=== PATIENT | female | born 1955 | race Caucasian/White ===

== ENCOUNTER 2016-09-25 17:22 | Emergency (ER) | payer BC ==
[~2016-09-25] VITALS: Ht 170.2 cm; Wt 54.9 kg
[~2016-09-25 17:22] MED LIST: ADVAIR 250/501 DISK IH; ALPRAZOLAM0.5 MG PO; ALPRAZOLAM1 MG PO; AMITRIPTYLINE H50 MG PO; AMLODIPINE BESYL5 MG PO; ANORO ELLIPTA1 EACH IH; ASPERCREME 1035.4 GM TP; ASPIRIN325 MG PO; BREO ELLIPTA 21 EACH IH; CALCIUM CARB1 TABLET PO; CATAPRES0.2 MG PO; CEFTIN500 MG PO; CLONIDINE HCL0.2 MG PO; CLOPIDOGREL75 MG PO; CYCLOBENZAPRINE10 MG PO; Chronulac,Cephulac,E PO; DAILY VALUE1 EACH PO; DICLOFENAC SOD100 MG PO; DICLOFENAC SODI75 MG PO; DIOVAN HCT 31 TABLET PO; DUONEB 2.5-0.5 M3 ML IH; FLEXERIL10 MG PO; FLONASE16 G1 BOTH NARES; IRON325 M1 PO; LACTULOSE10 GM/151 PO; LISINOPRIL10 MG PO; LITE COAT ASPI325 M1 PO; LOPRESSOR25 MG PO; LYRICA225 MG PO; MIRAPEX0.5 MG PO; MONTELUKAST SOD10 MG PO; MYCELEX10 MG PO; NEURONTIN800 MG PO; NICOTINE PATCH1 EAC1 TD; NICOTINE PATCH1 EAC2 TD; NITROSTAT0.4 MG SL; NOHOMEMEDS; NYSTATIN100000 UN1 PO; OXYCODONE HCL15 MG PO; OXYCONTIN10 MG PO; PERCOCET 10/1 TABLET PO; PRAVASTATIN SOD80 MG PO; PREDNISONE10 MG PO; PREDNISONE20 MG PO; PROAIR HFA8.5 GM; PROAIR HFA8.5 GM IH; PROTONIX40 MG PO; PROVENTIL,2.5 MG/3 M IH; SENNA8.6 M1 PO; SENNA8.6 MG PO; SIMVASTATIN40 MG PO; SINGULAIR10 MG PO; TIZANIDINE HCL4 MG PO; TRAZODONE HCL100 MG PO; TYLENOL EXTRA500 MG PO; ULTRAM50 MG PO; VOLTAREN75 MG PO; XANAX0.5 MG PO; XANAX1 MG PO; ZANTAC150 MG PO; ZOCOR20 MG PO; ZOFRAN4 MG PO
[2016-09-25 19:29] LABS: BASOPHIL COUNT 0.1 K/uL (0-0.1); EOSINOPHIL (%) 2.7 % (0-5); EOSINOPHIL COUNT 0.3 K/uL (0-0.3); HEMATOCRIT 45.8 % (36.0-46.0); IMMATURE GRANULOCYTE (%) 0.3 % (0.0-0.7); INSTRUMENT ABS NEUTROPHIL CT 5.9 K/uL; LYMPHOCYTE COUNT 3.3 K/uL (1.0-2.8); MCH 26.4 PG (29.0-34.0); MCHC 32.1 G/DL (30.0-36.0); MCV 82.2 FL (83-99); MONOCYTE COUNT 0.7 K/uL (0-0.8); NEUTROPHIL (%) 57.3 % (45-76); NEUTROPHIL COUNT 5.9 K/uL (1.8-6.4); PLATELET COUNT 334 K/uL (156-360); RBC DIS.WIDTH-CV 14.4 % (11.8-14.6); RED BLOOD COUNT 5.57 M/uL (3.80-5.20); WHITE BLOOD COUNT 10.4 K/uL (4.1-10.2)
[2016-09-25 19:44] LABS: CHLORIDE 109 mEq/L (99-109); POTASSIUM 4.3 mEq/L (3.7-5.4); SODIUM 145 mEq/L (136-147)
[2016-09-25 19:45] LABS: GLUCOSE 94 mg/dL (70-99)
[2016-09-25 19:47] LABS: ANION GAP 8 MEQ/L (2-14)
[2016-09-25] MEDS ORDERED: LEVAQUIN750 MG PO (19:48)
[2016-09-25 19:49] LABS: GFR ESTIMATE (CALCULATED) > 59 mL/min/
[2016-09-25 19:50] LABS: UREA NITROGEN (BUN) 10 mg/dL (9-23)
[2016-09-25 20:16] VITALS: BP 171/95
== END 2016-09-25 20:22 | disposition home or self-care (01) ==
LOC: EME 17:22
PROVIDERS: Emergency Medicine
DX: J44.0 Chronic obstructive pulmonary disease with (acute) lower respiratory infection (principal); J18.9 Pneumonia, unspecified organism; F17.200 Nicotine dependence, unspecified, uncomplicated; Z71.6 Tobacco abuse counseling; I10 Essential (primary) hypertension; I25.2 Old myocardial infarction; K21.9 Gastro-esophageal reflux disease without esophagitis; F41.9 Anxiety disorder, unspecified; M79.7 Fibromyalgia; Z86.73 Personal history of transient ischemic attack (TIA), and cerebral infarction without residual deficits; Z91.040 Latex allergy status; Z88.6 Allergy status to analgesic agent; Z88.2 Allergy status to sulfonamides
CPT/HCPCS: 80048; 85025; 87040; 93005; 99281; 99284

== ENCOUNTER → 2017-07-19 | Outpatient (CLI) | payer OTHER ==
[~2017-07-19] MED LIST changes: +LEVAQUIN750 MG PO
== END | disposition home or self-care (01) ==
LOC: RAD 15:55
DX: R05 Cough (principal); R06.02 Shortness of breath
CPT/HCPCS: 71046

== ENCOUNTER 2017-09-27 16:13 | Inpatient (IN) | payer OTHER ==
[~2017-09-27] VITALS: Ht 172.7 cm; Wt 58.8 kg
[~2017-09-27 16:13] MED LIST changes: -LITE COAT ASPI325 M1 PO; +LO-DOSE ASPIRIN81 M2 PO
[2017-09-27 17:21] LABS: HEMATOCRIT 49.2 % (36.0-46.0); MCH 27.5 PG (29.0-34.0); MCHC 32.5 G/DL (30.0-36.0); MCV 84.5 FL (83-99); PLATELET COUNT 289 K/uL (156-360); RBC DIS.WIDTH-CV 13.7 % (11.8-14.6); RED BLOOD COUNT 5.82 M/uL (3.80-5.20); WHITE BLOOD COUNT 22.5 K/uL (4.1-10.2)
[2017-09-27 17:37] LABS: ALBUMIN 4.1 g/dL (3.2-4.8); CHLORIDE 105 mEq/L (99-109); POTASSIUM 3.8 mEq/L (3.7-5.4); SODIUM 141 mEq/L (136-147)
[2017-09-27 17:39] LABS: GLUCOSE 105 mg/dL (70-99)
[2017-09-27 17:41] LABS: TOTAL BILIRUBIN 0.7 mg/dL (0.0-1.0)
[2017-09-27 17:43] LABS: ALKALINE PHOSPHATASE 79 IU/L (3-129); CREATININE 0.7 mg/dL (0.6-1.3); GFR ESTIMATE (CALCULATED) > 59 mL/min/
[2017-09-27 17:44] LABS: UREA NITROGEN (BUN) 17 mg/dL (9-23)
[2017-09-27 17:45] LABS: AST (GOT) 16 IU/L (2-34)
[2017-09-27 17:46] LABS: ALT (GPT) 18 IU/L (3-49); LIPASE 5 U/L (1.0-51.0)
[2017-09-27 19:26] LABS: APPEARANCE SL.HAZY ((CLEAR)); BILIRUBIN NEGATIVE; BLOOD MODERATE; COLOR YELLOW ((YELLOW)); GLUCOSE (STRIP) NEGATIVE; KETONES NEGATIVE; LEUKOCYTES LARGE; NITRITE POSITIVE; PROTEIN (STRIP) 30; SPECIFIC GRAVITY 1.011 (1.000-1.030); UROBILINOGEN 0.2 MG/DL (0.2-1.0)
[2017-09-27 19:32] LABS: BACTERIA RARE /HPF; EPITHELIAL CELLS RARE /HPF; MUCUS TRACE /LPF; UCUL ADDED? YES; WHITE BLOOD CELLS TNTC /HPF (0-5)
[2017-09-27] MEDS ORDERED: KEFLEX500 MG PO (19:50)
[2017-09-27] MEDS ORDERED: PRAMIPEXOLE DI0.5 MG PO (22:43)
[2017-09-27] MEDS ORDERED: PROCTOCREAM-HC30 GM PR (22:43)
[2017-09-27] MEDS ORDERED: METOPROLOL SUCC25 MG PO (22:44)
[2017-09-27] MEDS ORDERED: PRAVASTATIN SOD80 MG PO (22:44)
[2017-09-27] MEDS ORDERED: MORPHINE SULFAT15 M1 PO (22:45)
[2017-09-27] MEDS ORDERED: CYCLOBENZAPRINE10 MG PO (22:45)
[2017-09-27] MEDS ORDERED: OXYCODONE HCL10 MG PO (22:46)
[2017-09-27] MEDS ORDERED: VENTOLIN HFA18 GM IH (22:47)
[2017-09-27] MEDS ORDERED: MONTELUKAST SOD10 MG PO (22:48)
[2017-09-27] MEDS ORDERED: PANTOPRAZOLE SO40 MG PO (22:48)
[2017-09-27] MEDS ORDERED: ALENDRONATE SOD70 MG PO (22:49)
[2017-09-27] MEDS ORDERED: VITAMIN D-32000 UNI2 PO (22:50)
[2017-09-27] MEDS ORDERED: AMITRIPTYLINE H25 MG PO (22:50)
[2017-09-28 00:42] VITALS: BP 95/52
[2017-09-28 04:59] VITALS: BP 92/55
[2017-09-28 06:55] VITALS: BP 161/68
[2017-09-28 11:17] VITALS: BP 102/60
[2017-09-28 15:08] VITALS: BP 111/58
[2017-09-28 20:30] VITALS: BP 134/70
[2017-09-29 00:25] VITALS: BP 88/46
[2017-09-29 03:55] VITALS: BP 93/54
[2017-09-29 06:50] VITALS: BP 115/55
[2017-09-29 08:46] VITALS: BP 130/62
[2017-09-29 11:00] VITALS: BP 100/53
[2017-09-29 16:49] VITALS: BP 131/60
[2017-09-30 00:33] VITALS: BP 123/57
[2017-09-30 07:00] VITALS: BP 136/62
[2017-09-30 08:52] LABS: HEMATOCRIT 38.1 % (36.0-46.0); MCH 26.7 PG (29.0-34.0); MCHC 31.5 G/DL (30.0-36.0); MCV 84.9 FL (83-99); PLATELET COUNT 226 K/uL (156-360); RBC DIS.WIDTH-CV 13.4 % (11.8-14.6); RBC DIS.WIDTH-SD 41.7 % (39-53); WHITE BLOOD COUNT 7.3 K/uL (4.1-10.2)
[2017-09-30 09:20] LABS: RED BLOOD COUNT 4.49 M/uL (3.80-5.20)
[2017-09-30 09:29] LABS: CHLORIDE 107 MEQ/L (99-109); CREATININE 0.5 MG/DL (0.6-1.3); GFR ESTIMATE (CALCULATED) > 59 mL/min/; GLUCOSE 85 mg/dL (70-99); POTASSIUM 3.7 MEQ/L (3.7-5.4); SODIUM 141 MEQ/L (136-147); UREA NITROGEN (BUN) 7 mg/dL (9-23)
[2017-09-30 10:53] LABS: TROP-I INTERPRETATION NEGATIVE; TROPONIN-I < 0.01 ng/mL (0.0-0.30)
[2017-09-30 15:00] VITALS: BP 160/74
[2017-10-01 00:40] VITALS: BP 118/66
[2017-10-01 06:57] VITALS: BP 174/86
[2017-10-01 15:23] VITALS: BP 161/77
[2017-10-01 18:12] LABS: COMMENTS - BLOOD GASES A+C+; DEVICE NRBM; FI02 100 %; O2 FLOW 15 L/MIN; SITE LR; TOTAL RESP RATE 24 resp/min; pH 7.25 (7.35-7.45)
[2017-10-01 18:13] LABS: BASE EXCESS -6.7 mEq/L (-3 to +3); BICARBONATE 20.6 mEq/L (22-26); METHEMOGLOBIN 0.7 % (0-1.5); O2 SATURATION (CALCULATED) 98.1 % (95-99); PCO2 47 mm Hg (35-45); PO2 383 mm Hg (80-100)
[2017-10-01 18:37] LABS: HEMATOCRIT 39.9 % (36.0-46.0); HEMOGLOBIN 12.9 G/DL (11.9-15.5); MCH 27.7 PG (29.0-34.0); MCHC 32.3 G/DL (30.0-36.0); MCV 85.8 FL (83-99); RBC DIS.WIDTH-CV 13.8 % (11.8-14.6); RBC DIS.WIDTH-SD 42.6 % (39-53); RED BLOOD COUNT 4.65 M/uL (3.80-5.20); WHITE BLOOD COUNT 14.9 K/uL (4.1-10.2)
[2017-10-01 18:45] LABS: PLATELET COUNT 344 K/uL (156-360)
[2017-10-01 19:00] LABS: TROP-I INTERPRETATION INDETERMINATE; TROPONIN-I 0.38 ng/mL (0.0-0.30)
[2017-10-01 19:24] VITALS: BP 121/86
[2017-10-01 20:17] LABS: ALBUMIN 3.4 g/dL (3.2-4.8)
[2017-10-01 20:18] LABS: CHLORIDE 110 mEq/L (99-109); POTASSIUM 4.1 mEq/L (3.7-5.4); SODIUM 145 mEq/L (136-147)
[2017-10-01 20:20] LABS: TOTAL PROTEIN 6.2 g/dL (6.4-8.3)
[2017-10-01 20:23] LABS: GLUCOSE 137 mg/dL (70-99); TOTAL BILIRUBIN 0.3 mg/dL (0.0-1.0)
[2017-10-01 20:24] LABS: CREATININE 0.7 mg/dL (0.6-1.3); GFR ESTIMATE (CALCULATED) > 59 mL/min/
[2017-10-01 20:25] LABS: UREA NITROGEN (BUN) 9 mg/dL (9-23)
[2017-10-01 20:27] LABS: ALKALINE PHOSPHATASE 194 IU/L (3-129); ALT (GPT) 48 IU/L (3-49); AST (GOT) 35 IU/L (2-34)
[2017-10-02 01:45] VITALS: BP 89/61
[2017-10-02 03:43] LABS: INTER. NORMALIZED RATIO 1.1
[2017-10-02 03:46] LABS: PTT 30.9 SEC (25-37)
[2017-10-02 04:00] LABS: TROP-I INTERPRETATION POSITIVE; TROPONIN-I 1.07 ng/mL (0.0-0.30)
[2017-10-02 08:00] VITALS: BP 119/81
[2017-10-02 10:00] LABS: HEMATOCRIT 38.7 % (36.0-46.0); HEMOGLOBIN 12.3 G/DL (11.9-15.5); MCHC 31.8 G/DL (30.0-36.0); MCV 84.9 FL (83-99); PLATELET COUNT 258 K/uL (156-360); RBC DIS.WIDTH-CV 13.3 % (11.8-14.6); RBC DIS.WIDTH-SD 41.3 % (39-53); RED BLOOD COUNT 4.56 M/uL (3.80-5.20); WHITE BLOOD COUNT 7.7 K/uL (4.1-10.2)
[2017-10-02 10:20] LABS: TROPONIN-I 0.66 ng/mL (0.0-0.30)
[2017-10-02 10:21] LABS: TROP-I INTERPRETATION POSITIVE
[2017-10-02 10:24] LABS: CHLORIDE 107 MEQ/L (99-109); MAGNESIUM 2.1 mg/dl (1.3-2.7); POTASSIUM 4.2 MEQ/L (3.7-5.4); SODIUM 144 MEQ/L (136-147)
[2017-10-02 10:31] LABS: CREATININE 0.6 MG/DL (0.6-1.3); GFR ESTIMATE (CALCULATED) > 59 mL/min/; GLUCOSE 132 mg/dL (70-99); UREA NITROGEN (BUN) 9 mg/dL (9-23)
[2017-10-02 11:00] VITALS: BP 114/71
[2017-10-02 14:54] VITALS: BP 127/66
[2017-10-02 15:59] LABS: TROP-I INTERPRETATION INDETERMINATE; TROPONIN-I 0.48 ng/mL (0.0-0.30)
[2017-10-02 20:15] VITALS: BP 133/78
[2017-10-02 23:44] VITALS: BP 108/67
[2017-10-03] VITALS (8 sets, daily range): BP systolic 97–166; BP diastolic 56–93
[2017-10-03 06:53] LABS: HEMATOCRIT 35.6 % (36.0-46.0); HEMOGLOBIN 11.2 G/DL (11.9-15.5); MCH 26.8 PG (29.0-34.0); MCHC 31.5 G/DL (30.0-36.0); MCV 85.2 FL (83-99); PLATELET COUNT 333 K/uL (156-360); RBC DIS.WIDTH-CV 13.5 % (11.8-14.6); RBC DIS.WIDTH-SD 41.9 % (39-53); RED BLOOD COUNT 4.18 M/uL (3.80-5.20); WHITE BLOOD COUNT 15.6 K/uL (4.1-10.2)
[2017-10-03 07:38] LABS: CHLORIDE 112 MEQ/L (99-109); CREATININE 0.6 MG/DL (0.6-1.3); GFR ESTIMATE (CALCULATED) > 59 mL/min/; POTASSIUM 4.1 MEQ/L (3.7-5.4); SODIUM 147 MEQ/L (136-147); UREA NITROGEN (BUN) 14 mg/dL (9-23)
[2017-10-03 07:45] LABS: GLUCOSE 90 mg/dL (70-99)
[2017-10-03 10:34] LABS: TROP-I INTERPRETATION INDETERMINATE; TROPONIN-I 0.39 ng/mL (0.0-0.30)
[2017-10-03 14:27] LABS: COMMENTS - BLOOD GASES A+C+; DEVICE NC; O2 FLOW 5 L/MIN; SITE LR; TOTAL RESP RATE 29 resp/min; pH 7.44 (7.35-7.45)
[2017-10-03 14:28] LABS: BASE EXCESS 2.8 mEq/L (-3 to +3); BICARBONATE 27.2 mEq/L (22-26); CARBOXY HGB 1.7 % (0-5); METHEMOGLOBIN 1.2 % (0-1.5); PCO2 40 mm Hg (35-45); PO2 58 mm Hg (80-100)
[2017-10-03 16:34] LABS: DEVICE NRB; O2 FLOW 15 L/MIN
[2017-10-03 16:35] LABS: BASE EXCESS 0.8 mEq/L (-3 to +3); BICARBONATE 26.6 mEq/L (22-26); CARBOXY HGB 1.2 % (0-5); COMMENTS - BLOOD GASES C+; METHEMOGLOBIN 0.9 % (0-1.5); O2 SATURATION (CALCULATED) 99.3 % (95-99); PCO2 46 mm Hg (35-45); PO2 172 mm Hg (80-100); pH 7.37 (7.35-7.45)
[2017-10-03 16:53] LABS: BASOPHIL (%) 0.4 % (0-1); BASOPHIL COUNT 0.1 K/uL (0-0.1); EOSINOPHIL (%) 0.2 % (0-5); EOSINOPHIL COUNT 0.1 K/uL (0-0.3); HEMATOCRIT 40.9 % (36.0-46.0); HEMOGLOBIN 13.1 G/DL (11.9-15.5); IMMATURE GRANULOCYTE (%) 0.6 % (0.0-0.7); LYMPHOCYTE (%) 9.7 % (15-42); LYMPHOCYTE COUNT 2.5 K/uL (1.0-2.8); MCH 27.3 PG (29.0-34.0); MCV 85.2 FL (83-99); MONOCYTE (%) 6.3 % (3-12); MONOCYTE COUNT 1.6 K/uL (0-0.8); NEUTROPHIL (%) 82.8 % (45-76); NEUTROPHIL COUNT 20.9 K/uL (1.8-6.4); RBC DIS.WIDTH-CV 13.6 % (11.8-14.6); RBC DIS.WIDTH-SD 42.5 % (39-53); WHITE BLOOD COUNT 25.3 K/uL (4.1-10.2)
[2017-10-03 16:58] LABS: PLATELET COUNT 451 K/uL (156-360)
[2017-10-03 17:16] LABS: TROP-I INTERPRETATION INDETERMINATE; TROPONIN-I 0.42 ng/mL (0.0-0.30)
[2017-10-03 23:29] LABS: TROP-I INTERPRETATION INDETERMINATE
[2017-10-04 02:53] VITALS: BP 93/56
[2017-10-04 06:45] LABS: HEMATOCRIT 37.9 % (36.0-46.0); HEMOGLOBIN 11.7 G/DL (11.9-15.5); MCH 26.3 PG (29.0-34.0); MCHC 30.9 G/DL (30.0-36.0); MCV 85.2 FL (83-99); PLATELET COUNT 345 K/uL (156-360); RBC DIS.WIDTH-CV 13.4 % (11.8-14.6); RED BLOOD COUNT 4.45 M/uL (3.80-5.20); WHITE BLOOD COUNT 13.2 K/uL (4.1-10.2)
[2017-10-04 07:12] VITALS: BP 121/64
[2017-10-04 07:27] LABS: CHLORIDE 105 MEQ/L (99-109); CREATININE 0.5 MG/DL (0.6-1.3); GFR ESTIMATE (CALCULATED) > 59 mL/min/; MAGNESIUM 2.1 mg/dl (1.3-2.7); POTASSIUM 4.3 MEQ/L (3.7-5.4); SODIUM 145 MEQ/L (136-147); UREA NITROGEN (BUN) 11 mg/dL (9-23)
[2017-10-04 07:30] LABS: GLUCOSE 154 mg/dL (70-99)
[2017-10-04 16:00] VITALS: BP 117/77
[2017-10-04 19:07] VITALS: BP 117/65
[2017-10-04 23:55] VITALS: BP 9/58; BP 99/58
[2017-10-05 03:30] VITALS: BP 116/67
[2017-10-05 05:45] LABS: BASOPHIL (%) 0.1 % (0-1); EOSINOPHIL (%) 0 % (0-5); HEMATOCRIT 36.7 % (36.0-46.0); HEMOGLOBIN 11.1 G/DL (11.9-15.5); LYMPHOCYTE (%) 5.8 % (15-42); LYMPHOCYTE COUNT 0.7 K/uL (1.0-2.8); MCH 26.1 PG (29.0-34.0); MCHC 30.2 G/DL (30.0-36.0); MCV 86.4 FL (83-99); MONOCYTE (%) 2.7 % (3-12); MONOCYTE COUNT 0.3 K/uL (0-0.8); NEUTROPHIL (%) 90.4 % (45-76); NEUTROPHIL COUNT 11.4 K/uL (1.8-6.4); PLATELET COUNT 377 K/uL (156-360); RBC DIS.WIDTH-CV 13.6 % (11.8-14.6); RBC DIS.WIDTH-SD 42.5 % (39-53); RED BLOOD COUNT 4.25 M/uL (3.80-5.20); WHITE BLOOD COUNT 12.6 K/uL (4.1-10.2)
[2017-10-05 06:02] LABS: CHLORIDE 107 MEQ/L (99-109); CREATININE 0.7 MG/DL (0.6-1.3); GFR ESTIMATE (CALCULATED) > 59 mL/min/; GLUCOSE 139 mg/dL (70-99); MAGNESIUM 2.1 mg/dl (1.3-2.7); POTASSIUM 3.7 MEQ/L (3.7-5.4); SODIUM 146 MEQ/L (136-147); UREA NITROGEN (BUN) 15 mg/dL (9-23)
[2017-10-05 07:10] VITALS: BP 129/74
[2017-10-05 08:45] LABS: TROP-I INTERPRETATION INDETERMINATE; TROPONIN-I 0.33 ng/mL (0.0-0.30)
[2017-10-05 11:52] VITALS: BP 135/68
[2017-10-05 15:20] VITALS: BP 128/74
[2017-10-05 19:47] VITALS: BP 128/74
[2017-10-06 00:04] VITALS: BP 123/66
[2017-10-06 05:16] VITALS: BP 128/81
[2017-10-06 07:07] VITALS: BP 141/84
[2017-10-06 09:19] LABS: CHLORIDE 103 MEQ/L (99-109); CREATININE 0.6 MG/DL (0.6-1.3); GFR ESTIMATE (CALCULATED) > 59 mL/min/; POTASSIUM 3.6 MEQ/L (3.7-5.4); SODIUM 145 MEQ/L (136-147); UREA NITROGEN (BUN) 18 mg/dL (9-23)
[2017-10-06 09:20] LABS: GLUCOSE 92 mg/dL (70-99)
[2017-10-06 11:12] VITALS: BP 133/72
[2017-10-06 18:53] VITALS: BP 149/83
[2017-10-07 00:03] VITALS: BP 146/80
[2017-10-07 03:50] VITALS: BP 124/83
[2017-10-07 07:19] VITALS: BP 161/89
[2017-10-07 11:02] VITALS: BP 150/90
[2017-10-07 15:03] VITALS: BP 154/83
[2017-10-07 19:13] VITALS: BP 149/86
[2017-10-08] VITALS (7 sets, daily range): BP systolic 106–154; BP diastolic 64–105
[2017-10-08 08:31] LABS: HEMATOCRIT 45.8 % (36.0-46.0); HEMOGLOBIN 14.7 G/DL (11.9-15.5); MCH 26.4 PG (29.0-34.0); MCHC 32.1 G/DL (30.0-36.0); MCV 82.4 FL (83-99); PLATELET COUNT 631 K/uL (156-360); RBC DIS.WIDTH-SD 40.4 % (39-53); RED BLOOD COUNT 5.56 M/uL (3.80-5.20); WHITE BLOOD COUNT 22.9 K/uL (4.1-10.2)
[2017-10-08 08:32] LABS: CHLORIDE 99 MEQ/L (99-109); CREATININE 0.6 MG/DL (0.6-1.3); GFR ESTIMATE (CALCULATED) > 59 mL/min/; POTASSIUM 3.4 MEQ/L (3.7-5.4); SODIUM 145 MEQ/L (136-147); UREA NITROGEN (BUN) 15 mg/dL (9-23)
[2017-10-08 08:41] LABS: GLUCOSE 117 mg/dL (70-99)
[2017-10-09 03:20] VITALS: BP 145/86
[2017-10-09 05:35] LABS: BASOPHIL (%) 0.2 % (0-1); EOSINOPHIL (%) 1.1 % (0-5); EOSINOPHIL COUNT 0.2 K/uL (0-0.3); HEMATOCRIT 40.3 % (36.0-46.0); HEMOGLOBIN 12.9 G/DL (11.9-15.5); IMMATURE GRANULOCYTE (%) 0.6 % (0.0-0.7); LYMPHOCYTE (%) 16.8 % (15-42); LYMPHOCYTE COUNT 3.1 K/uL (1.0-2.8); MCH 26.5 PG (29.0-34.0); MCV 82.8 FL (83-99); MONOCYTE (%) 6.2 % (3-12); MONOCYTE COUNT 1.2 K/uL (0-0.8); NEUTROPHIL (%) 75.1 % (45-76); NEUTROPHIL COUNT 13.9 K/uL (1.8-6.4); PLATELET COUNT 522 K/uL (156-360); RBC DIS.WIDTH-CV 14.2 % (11.8-14.6); RBC DIS.WIDTH-SD 41.3 % (39-53); RED BLOOD COUNT 4.87 M/uL (3.80-5.20); WHITE BLOOD COUNT 18.6 K/uL (4.1-10.2)
[2017-10-09 07:40] VITALS: BP 150/90
[2017-10-09 10:44] VITALS: BP 127/84
[2017-10-09] MEDS ORDERED: LISINOPRIL5 MG PO (11:33)
[2017-10-09] MEDS ORDERED: METOPROLOL SUCC25 MG PO (11:33)
[2017-10-09] MEDS ORDERED: K-DUR20 MEQ PO (11:33)
[2017-10-09] MEDS ORDERED: EFFIENT10 MG PO (11:33)
[2017-10-09] MEDS ORDERED: FUROSEMIDE40 MG PO (11:33)
[2017-10-09] MEDS ORDERED: PREDNISONE20 MG PO (11:33)
[2017-10-09] MEDS ORDERED: NICOTINE PATCH1 EAC2 TD (12:32)
[2017-10-10] MEDS ORDERED: EFFIENT10 MG PO (08:50)
[2017-10-10] MEDS ORDERED: PREDNISONE20 MG PO (08:54)
[2017-10-10] MEDS ORDERED: K-DUR20 MEQ PO (08:57)
== END 2017-10-09 12:52 | disposition home or self-care (01) | DRG 981 ==
LOC: EME 16:13 → 5EAST 21:42 → EDOF 21:42 → 4EAST 21:42 → CANRESERV 21:44 → EDOF 21:51 → 5EAST 23:08 → ENRESERV 10-01 18:13 → CANRESERV 10-01 18:13 → 5EAST 10-01 18:22 → ENRESERV 10-01 18:26 → 4EAST 10-01 18:58 → ENPENDDIS 10-09 → 4EAST 10-09 12:52
PROVIDERS: Hospitalist; Internal Medicine; Internal Medicine Interventional Cardiology; Physician Assistant
DX: J44.1 Chronic obstructive pulmonary disease with (acute) exacerbation (principal); I21.4 Non-ST elevation (NSTEMI) myocardial infarction; K21.9 Gastro-esophageal reflux disease without esophagitis; Z86.73 Personal history of transient ischemic attack (TIA), and cerebral infarction without residual deficits; M79.7 Fibromyalgia; G89.4 Chronic pain syndrome; I50.9 Heart failure, unspecified; I11.0 Hypertensive heart disease with heart failure; G89.29 Other chronic pain; F17.210 Nicotine dependence, cigarettes, uncomplicated; N13.6 Pyonephrosis; F41.9 Anxiety disorder, unspecified; F32.9 Major depressive disorder, single episode, unspecified; I23.7 Postinfarction angina; J96.01 Acute respiratory failure with hypoxia; Z90.710 Acquired absence of both cervix and uterus; E78.5 Hyperlipidemia, unspecified; B96.20 Unspecified Escherichia coli [E. coli] as the cause of diseases classified elsewhere; M19.90 Unspecified osteoarthritis, unspecified site; M54.16 Radiculopathy, lumbar region; M48.54XA Collapsed vertebra, not elsewhere classified, thoracic region, initial encounter for fracture; K59.00 Constipation, unspecified; R78.81 Bacteremia; I25.2 Old myocardial infarction; Z95.5 Presence of coronary angioplasty implant and graft; I25.10 Atherosclerotic heart disease of native coronary artery without angina pectoris; K57.90 Diverticulosis of intestine, part unspecified, without perforation or abscess without bleeding; E87.4 Mixed disorder of acid-base balance
CPT/HCPCS: 36600; 71045; 71046; 74176; 80048; 80053; 81003; 83605; 83690; 83735; 83880; 84484; 85025; 85027; 85347; 85610; 85730; 87040; 87077; 87086; 87186; 87801; 93005; 93306; 94640; 94669; 94760; 94799; 97530 GO; 97530 GP; 99281; 99285; C1725; C1769; C1874; C1887; C1894; J0153; J0295; J0456; J0461; J0696; J1644; J1885; J1940; J2250; J2405; J2543; J2920; J2930; J3010; J3370; J7030; J7050; J7512